=== PATIENT | male | born 1940 | race Caucasian/White ===

== ENCOUNTER → 2019-02-09 | Day surgery (SDC) | payer MEDICARE ==
[2019-02-04 13:46] LABS: BASOPHILS # (AUTO) 0.1 (0.0-0.1); BASOPHILS % 0.5 % (0.0-1.0); EOSINOPHILS # (AUTO) 0.3 (0.0-0.4); EOSINOPHILS % 2.2 % (0.0-6.0); HEMATOCRIT 48.8 % (38.2-49.6); HEMOGLOBIN 16.2 g/dL (14.0-18.0); LYMPHOCYTES # (AUTO) 3.3 (1.0-3.2); LYMPHOCYTES % 28.1 % (18.0-39.1); MEAN CORPUSCULAR HEMOGLOBIN 30.4 pg (28-32); MEAN CORPUSCULAR HGB CONC 33.2 g/dL (31-35); MEAN CORPUSCULAR VOLUME 91.6 fL (81-99); MONOCYTES # (AUTO) 0.8 (0.2-0.8); MONOCYTES % 6.7 % (4.4-11.3); NEUTROPHILS # (AUTO) 7.4 (2.1-6.9); PLATELET COUNT 253 x10e3/uL (140-360); RED BLOOD COUNT 5.33 x10e6/uL (4.3-5.7); RED CELL DISTRIBUTION WIDTH 14.2 % (11.7-14.4)
[~2019-02-09] MED LIST: ASPIRIN81 MG PO; HYOSCYAMINE 0.125 MG TAB ONE; LOSARTAN-HCTZ1 EAC2 PO; PROPOFOL IV EMULSION 10 MG/ML 50 ML VIAL ONE
[2019-02-09 10:50] VITALS: BP 124/70
--- NOTE | 2019-02-09 12:01 | Operative Report ---
DATE OF PROCEDURE: 02/09/2019 SURGEON: Danny Catherine MD PROCEDURE: Colonoscopy and polypectomy with biopsies. INDICATIONS FOR COLONOSCOPY: Colorectal cancer screening. MEDICATIONS: The patient was done under MAC, please see anesthesiologist's note. PROCEDURE IN DETAIL: With the patient in left lateral decubitus position, flexible fiberoptic Olympus colonoscope was inserted into the rectum with ease and advanced all the way to the cecum. There was some scattered diverticular disease pretty much throughout and it was more prominent in the left colon. The scope was then withdrawn slowly whatever was visualized. Mucosa overlying the cecum, ascending colon, transverse colon, descending colon other than for diverticulosis grossly appeared to be within normal limits. One polyp was snared and site was hemoclipped in the sigmoid colon. One polyp was hot biopsied from the rectum and there was a minute submucosal nodule in distal rectum that was cold biopsy. The scope was then retroflexed into the distal rectum and small internal hemorrhoids were noted, none of which was actively bleeding. The scope was then straightened out, it was subsequently withdrawn. The patient tolerated the procedure well. IMPRESSION: 1. Diverticulosis. 2. Sigmoid colon polyp snared, site hemoclipped. 3. Rectal polyp, hot biopsied. 4. Submucosal nodule, minute, distal rectum, biopsied. 5. Internal hemorrhoids, none actively bleeding. PLAN: Follow up histology. Initiate high-fiber, low-fat diet. Initiate high-fiber supplement. The patient might benefit from a followup colonoscopy in 5 to 10 years. Danny Catherine MD [facility] [place] /[id number]
== END | disposition home or self-care (01) ==
LOC: OR 06:57
PROVIDERS: ATTEND Internal Medicine Gastroenterology
DX: K59.00 Constipation, unspecified (principal); K63.5 Polyp of colon; K62.1 Rectal polyp; K57.30 Diverticulosis of large intestine without perforation or abscess without bleeding; K62.89 Other specified diseases of anus and rectum; K64.8 Other hemorrhoids; I49.3 Ventricular premature depolarization; I10 Essential (primary) hypertension; E78.5 Hyperlipidemia, unspecified; N40.0 Benign prostatic hyperplasia without lower urinary tract symptoms; F17.210 Nicotine dependence, cigarettes, uncomplicated; Z01.810 Encounter for preprocedural cardiovascular examination; Z01.812 Encounter for preprocedural laboratory examination; Z79.82 Long term (current) use of aspirin
CPT/HCPCS: 36415; 45380; 45384; 45385; 85025; 88305; 93005; J2704; 45378

== ENCOUNTER → 2019-03-03 | Outpatient (CLI) | payer MEDICARE ==
[~2019-03-03] MED LIST changes: -HYOSCYAMINE 0.125 MG TAB ONE; -PROPOFOL IV EMULSION 10 MG/ML 50 ML VIAL ONE
--- NOTE | 2019-03-03 16:37 | Diagnostic Imaging Report ---
Exam: PA and lateral chest radiograph Clinical history: Bronchitis Findings: There is no evidence of pulmonary consolidation, pleural effusion, or pneumothorax. The cardiac size is within normal limits. The regional osseous structures are unremarkable. Impression: 1. No radiographic evidence of acute cardiorespiratory disease. Signed by: Dr. Doyle Sanchez MD on 03/03/2019 4:34 PM
== END ==
LOC: RAD 14:02
PROVIDERS: ATTEND Internal Medicine
DX: J41.0 Simple chronic bronchitis (principal); R49.0 Dysphonia
CPT/HCPCS: 71046